=== PATIENT | female | born 1935 | race Caucasian/White ===

== ENCOUNTER 2021-02-25 21:42 | Emergency (ER) | payer OTHER, SELFPAY ==
[~2021-02-25] VITALS: Ht 149.9 cm; Wt 74.8 kg
[2021-02-25 21:42] VITALS: BP_SYST 168
[2021-02-25] MEDS ORDERED: ASPIRIN 325 MG TABLET PO ONE (22:15)
[2021-02-25] MEDS ORDERED: HEPARIN 25,000 UNITS/D5W 250ML 250 ML IV ONE (22:45)
[2021-02-25] MEDS ORDERED: HEPARIN SODIUM,PORCINE 5,000 UNITS/ML VIAL IVP ONE (22:45)
[2021-02-25 22:48] LABS: BASOPHILS # (AUTO) 0.1 K/uL (0.0-0.2); BASOPHILS % (AUTO) 0.9 % (0.0-2.0); EOSINOPHILS # (AUTO) 0.3 K/uL (0.0-0.4); EOSINOPHILS % (AUTO) 3.6 % (0.0-4.0); HEMATOCRIT 39.8 % (36-48); HEMOGLOBIN 13.8 g/dL (12.0-16.0); LYMPHOCYTES # (AUTO) 1.4 K/uL (1.0-5.5); LYMPHOCYTES % (AUTO) 17.6 % (20.5-51.5); MEAN CORPUSCULAR HEMOGLOBIN 31 pg (27-31); MEAN CORPUSCULAR HGB CONC 35 % (32-36); MEAN CORPUSCULAR VOLUME 89 fL (79.0-98.0); MONOCYTES # (AUTO) 0.6 K/uL (0.0-1.0); MONOCYTES % (AUTO) 8.1 % (1.7-9.3); NEUTROPHILS # (AUTO) 5.3 K/uL (1.8-7.7); NEUTROPHILS % (AUTO) 69.8 % (40.0-70.0); PLATELET COUNT (AUTO) 176 K/uL (130-430); RED BLOOD CELL COUNT(AUTO) 4.47 MIL/uL (4.2-6.2); WHITE BLOOD COUNT (AUTO) 7.7 K/uL (4.8-10.8)
[2021-02-25] MEDS ORDERED: MORPHINE 4 MG INJ. 4 MG/ML VIAL IVP ONE (23:00)
[2021-02-25] MEDS ORDERED: ONDANSETRON HCL 4 MG/2 ML VIAL IVP ONE (23:00)
[2021-02-25 23:03] LABS: PROTHROMBIN TIME 10.4 SECS (9.5-12.5)
[2021-02-25] MEDS ORDERED: LOSA100T3 PO (23:46)
[2021-02-25] MEDS ORDERED: NAPR-686 PO (23:46)
[2021-02-25] MEDS ORDERED: FLUT16SP16 NS (23:46)
[2021-02-25] MEDS ORDERED: TRAM100T28 PO (23:46)
[2021-02-25] MEDS ORDERED: AMLO5TAB4 PO (23:46)
[2021-02-25] MEDS ORDERED: LIP10 PO (23:46)
[2021-02-25] MEDS ORDERED: SOLI5TAB2 PO (23:46)
[2021-02-25] MEDS ORDERED: OMEP-268 PO (23:46)
[2021-02-25] MEDS ORDERED: ASPI-1393 PO (23:46)
[2021-02-25] MEDS ORDERED: GLIP10TA11 PO (23:46)
[2021-02-25] MEDS ORDERED: POTA20TA83 PO (23:46)
[2021-02-25] MEDS ORDERED: GLUXR500 PO (23:46)
[2021-02-25] MEDS ORDERED: CARV25TA55 PO (23:46)
[2021-02-25] MEDS ORDERED: FURO-149 PO (23:46)
[2021-02-26 00:18] LABS: ALANINE AMINOTRANSFERASE 17 U/L (12-78); ALBUMIN 3.8 g/dL (3.4-4.8); ANION GAP 14 (5-15); ASPARTATE AMINOTRANSFERASE 15 U/L (10-37); CALCIUM 9.5 mg/dL (8.4-11.0); CHLORIDE 98 mmol/L (98-107); CREATININE 0.94 mg/dL (0.55-1.30); GLUCOSE 295 mg/dL (70-99); POTASSIUM 3.1 mmol/L (3.5-5.1); SODIUM SERUM 136 mmol/L (136-145); TOTAL BILIRUBIN 0.5 mg/dL (0.0-1.0); UREA NITROGEN, BLOOD 20 mg/dL (8-21)
[2021-02-26] MEDS ORDERED: MORPHINE 2 MG/ML INJ. SYRINGE IVP ONE (01:15)
[2021-02-26 05:21] LABS: PROTHROMBIN TIME 10.8 SECS (9.5-12.5)
[2021-02-26] MEDS ORDERED: amLODIPine BESYLATE 5 MG TABLET ONE (05:29)
[2021-02-26] MEDS ORDERED: CARVEDILOL 6.25 MG TABLET (COREG) PO ONE (05:30)
[2021-02-26] MEDS ORDERED: amLODIPine BESYLATE 5 MG TABLET PO ONE (05:30)
[2021-02-26 05:36] VITALS: BP_SYST 178
== END 2021-02-26 05:15 ==
LOC: SED 21:42
DX: I70.208 Unspecified atherosclerosis of native arteries of extremities, other extremity (principal); I48.91 Unspecified atrial fibrillation; I10 Essential (primary) hypertension; E11.9 Type 2 diabetes mellitus without complications; Z79.84 Long term (current) use of oral hypoglycemic drugs; Z79.899 Other long term (current) drug therapy; E78.00 Pure hypercholesterolemia, unspecified; Z20.822 Contact with and (suspected) exposure to COVID-19
CPT/HCPCS: 36415; 71045; 80053; 83880; 84484; 85025; 85610; 85730; 87426; 93005; 93922; 96365; 96375; 96376; 99285; J1644 ×2; J2270 ×2; J2405